=== PATIENT | female | born 1990 | race Caucasian/White ===

== ENCOUNTER 2016-05-20 21:01 | Emergency (ER) | payer OTHER ==
[~2016-05-20] VITALS: Ht 160 cm; Wt 81.8 kg
[2016-05-20 22:37] VITALS: BP 133/79; PULSE 61; RESP 18
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
[2016-05-21 00:07] VITALS: BP 113/73; PULSE 64; RESP 18; O2SAT 98
== END 2016-05-21 00:08 | disposition home or self-care (01) ==
LOC: SED 21:01
DX: S39.012A Strain of muscle, fascia and tendon of lower back, initial encounter (principal); V44.5XXA Car driver injured in collision with heavy transport vehicle or bus in traffic accident, initial encounter; Y93.89 Activity, other specified; Y92.69 Other specified industrial and construction area as the place of occurrence of the external cause; Y99.0 Civilian activity done for income or pay; R51 Headache; R10.9 Unspecified abdominal pain; M25.559 Pain in unspecified hip